=== PATIENT | female | born 1985 | race Caucasian/White ===

== ENCOUNTER 2021-05-23 02:56 | Inpatient (IN) ==
[2021-05-23] MEDS ORDERED: PENICILLIN G POTASSIUM 6 MU in DEXTROSE 5% 250 ML IV STA (03:24)
--- NOTE | 2021-05-23 03:27 | History & Physical Report ---
Date of Service May 23, 2021 Assessment & Plan (1) GBS (group B Streptococcus carrier), +RV culture, currently : (2) Gestational diabetes: (3) Grand multipara: (4) Supervision of elderly multigravida: (5) Normal labor: Plan: Patient is active labor, admit, epidural, pcn for gbs positive. Will attempt to keep patient until second dose but given grandmultiparity may not succeed. Patient has hx of pph with retained placenta two days after her last delivery, will actively manage the third stage. type and screen. Fetus is category one. hx of lga infants, no issues with delivery and last ac was 35 weeks with 55%. anticipate vaginal delivery. Admission and Anticipated Discharge Date Admission Date: May 23, 2021 History of Present Illness Chief Complaint: labor Primary Care Provider: Henrik Valentino MD Patient is a 36yowf who presents to labor and delivery with contractions. She was a scheduled induction for later today for postdates. Denies lof. +fm. and Delivery Plans COVID POSITIVE 04/27/21 (SX STARTED 04/24/21) Induction scheduled for may 23. Had negative test on 05/21/21 Grand Multi Para History of gestational HTN *on baby asa History of retained placenta -required transfusion--1U prbc History of LGA infants *no issues with infant delivery--last baby 10 pounds AMA *Weekly NST's @ 36wks Doxycycline use in 1st trimester *MFM consult (11/21/20 [facility] [place]growth us every 4 weeks Obesity *Per MFM Growth US Q4wks Starting at 24wks last growth at 32 weeks 66%. Asthma GDM w/16wk glucola *Begin monthly AC Us's @24wks--ac 35 weeks 55% GBS carrier- treat in labor OB Labs: Blood Type O Positive 10/09/20 Antibody Screen NEGATIVE 10/09/20 Hemoglobin 13.0 g/dL (12.0-16.0) 02/26/21 Hematocrit 39.0 % (37-47) 02/26/21 Mean Corpuscular Volume 80.8 fL (80-100) 10/09/20 Platelet Count 386 K/uL (130-400) 10/09/20 Rubella IgG Antibody Immune (Immune) 10/09/20 Rapid Plasma Reagin Nonreactive (Nonreactive) 10/09/20 Hepatitis B Surface Antigen Neg (Neg) 10/09/20 HIV (1&2) Ab and P24 Ag, 4th Gener Neg (Neg) 10/09/20 Glucose 1 Hour 50 gm Load 156 mg/dl (70-130) H 12/04/20 OB Optional Labs: Chlamydia trachomatis RNA NOT DETECTED (NOT DETECTED) 10/09/20 Neisseria gonorrhoeae RNA NOT DETECTED (NOT DETECTED) 10/09/20 Labs Reviewed: low risk cfdna declines AFP Allergies Allergy/AdvReac Type Severity Reaction Status Date / Time amoxicillin Allergy diarrhea Verified 05/22/21 10:38 Home Medications Medication Instructions Recorded Confirmed Type ascorbate calcium (vitamin C) PO 10/03/20 05/22/21 History aspirin 81 mg tablet,delayed 81 mg PO DAILY 10/03/20 05/22/21 History release cetirizine 10 mg tablet (Zyrtec) 10 mg PO DAILY PRN 10/03/20 05/22/21 History cholecalciferol (vitamin D3) PO 10/03/20 05/22/21 History [Vitamin D3] prenat.vits,viri,lrq-jvnm-zvdtk 1 tab PO DAILY 10/03/20 05/22/21 History acetone (urine) test (Ketone Urine #50 ea 01/22/21 05/22/21 Rx Test) blood sugar diagnostic (Checkout10Touch #150 ea 01/22/21 05/22/21 Rx Verio test strips) blood-glucose meter (OneTouch #1 ea 01/22/21 05/22/21 Rx Verio Flex meter) lancets 33 gauge (OneTouch Delica #150 ea 01/22/21 05/22/21 Rx Plus Lancet) albuterol sulfate 2.5 mg INHALATION Q6H 03/27/21 05/22/21 History budesonide 90 mcg/actuation breath 1 inh INHALATION BID #1 ea 03/27/21 05/22/21 Rx activated powder inhaler (Pulmicort Flexhaler) montelukast 10 mg tablet 10 mg PO QPM #30 tab 03/27/21 05/22/21 Rx zinc acetate 25 mg (zinc) capsule 25 mg PO DAILY 03/27/21 05/22/21 History (Galzin) Patient History Surgical History H/O breast augmentation Hx of abdominoplasty S/P dilation and curettage x 3 S/P LEEP of cervix S/P tonsillectomy S/P wisdom tooth extraction Family History Father Dyslipidemia Mother Breast cancer Social History Smoking Status: Never smoker marital status: Single marital status details: Domenico (28) [phone] Current Living Situation: Significant Other Current Living Situation Comment: lives with FOB and pts children, 2 dogs, cats (fob to change litter) current occupational status: employed 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 Date GA wks Lbr Lgth wt Sex Type del Anes Place Del Prov ? Comment Unknown 6 Aborted-Elective 2001 D&E Unknown 5 Ectopic 2003 Methotrexate Unknown Aborted-Spontaneous 2003 D&C Unknown 7 Aborted-Elective 2007 D&E Unknown 4 Aborted-Spontaneous 2010 Chemical Preg nacy 04/17/03 39 7lbs 1oz F Epid ural Other Delivered in [place] No 12/29/05 39 9lbs 2oz M Epid ural Other delivered in [place] No 07/27/11 39 8lbs 3oz M Epid ural Other [place] No Face up 05/23/13 39 9lbs 10oz M Non e Other [place] No 10/23/16 39 9lbs F Epidural Other [place] No 02/11/20 40 10lbs M None Ot her Stevan No Elevated BP 06/16/20 5 Aborted-Spontaneous 08/14/20 5 Aborted-Spontaneous [employer] History noncontributory Physical Exam Constitutional: WD/WN, vitals as above Gastrointestinal (Abdomen): soft, gravid, nt Psychiatric: A+Ox3, euthymic affect Genitourinary: cx--75/-2 per nursing toco--q3-5min efm--130s wtih mod variability, accels present, no decels Results & Data ([place]) Vital Signs (Past 12 Hours) Vital Signs Pulse BP 05/23/21 03:16 76 157/85 H Coding Level of Care Code None Diagnoses GBS (group B Streptococcus carrier), +RV culture, currently O99.820 Gestational diabetes O24.419 Grand multipara Z64.1 Supervision of elderly multigravida O09.529 Normal labor O80; Z37.9
[2021-05-23] MEDS: LACTATED RINGER'S 1,000 ML IV PRN ×2 (03:45→04:45)
[2021-05-23] MEDS ORDERED: SODIUM CHLORIDE 0.9% INJ 10 ML VIAL ONE (03:56)
[2021-05-23] MEDS ORDERED: ePHEDrine sulfate 50 MG/ML AMP ONE (03:56)
[2021-05-23] MEDS ORDERED: BUPIVACAINE 0.25% 30 ML VIAL ONE (03:56)
[2021-05-23] MEDS ORDERED: fentaNYL citrate 100 MCG/2 ML VIAL ONE (03:56)
[2021-05-23] MEDS ORDERED: fentaNYL 2MCG/ML ROPIVACAINE 1.25MG/ML 100 ML BAG EPI ONE (03:57)
--- NOTE | 2021-05-23 03:59 | Communication Note ---
Date of Service: May 23, 2021 bedside ultrasound--cephalic ON further review of the chart, her anatomy us at [facility] [place] [place] was incomplete--appears did not get complete spine views and was not able to do skeletal survey completely secondary to doxycycline exposure in early . HOwever, on review it was actually heart views that were never seen. It was recommended she have f/u at [facility] [place] [place] but she never did this, so never documented and no echo. The spine was seen in its entirety per report.
[2021-05-23 04:21] LABS: Hemoglobin 11.4 g/dL (12.0-16.0); Mean Corpuscular Hemoglobin 24.6 pg (25-34); Mean Corpuscular Hgb Conc 31.7 g/dL (32-36); Mean Corpuscular Volume 77.8 fL (80-100); Mean Platelet Volume 9.8 fL (7.4-10.4); Platelet Count 253 K/uL (130-400); RDW Coefficient of Variation 15.9 % (11.5-14.5); RDW Standard Deviation 45.3 fL (36.4-46.3); Red Blood Count 4.63 M/uL (4.2-5.4); White Blood Count 9.94 K/uL (4.8-10.8)
[2021-05-23] MEDS: OXYTOCIN 30 UNITS/500 ML BAG IV PRN ×2 (04:47→05:32)
[2021-05-23] MEDS ORDERED: HYDROCORTISONE ACETATE 25 MG SUPP PR PRN (04:54)
[2021-05-23] MEDS ORDERED: oxyCODONE/ACETAMINOPHEN 5mg/325mg TAB PO PRN (04:54)
[2021-05-23] MEDS ORDERED: ACETAMINOPHEN 325 MG TAB PO PRN (04:54)
[2021-05-23] MEDS ORDERED: OXYTOCIN 30 UNITS/500 ML BAG IV PRN (04:54)
[2021-05-23] MEDS ORDERED: SUPERCREAM 0.870% 15 GM JAR EXT PRN (04:54)
[2021-05-23] MEDS ORDERED: BENZOCAINE 20% AER SPR 82.5 GM CAN EXT PRN (04:54)
[2021-05-23] MEDS ORDERED: DIPHTHERIA/TETANUS/PERTUSSIS 0.5 ML SYR/VIAL IM ONE (04:54)
--- NOTE | 2021-05-23 04:59 | Delivery Summary ---
Vaginal Delivery Summary Date of Service May 23, 2021 Vaginal Delivery Summary Pre-operative Diagnosis: at 40 2/7 active labor ama a1gdm grand multip hx of lga babies hx of pph with retained placenta gbs positive Post-operative Diagnosis: same Procedure: arom manual exploration of the uterus EBL: 300cc Anesthesia: none Procedure: The patient presented to labor and delivery in active labor at 5cm. She progressed quickly to c/c/0 wtih urge to push. arom for clear fluid. The patient pushed for 2 contractions to deliver a viable female infant in nitza position. The rest of the infant was then delivered without difficulty immediately. The baby was vigorous. The was placed in the maternal abdomen for drying and attention. Cord was clamped and cut at one minute of life. Cord blood and segment obtained. Placenta delivered spontaneous, intact with a three vessel cord. One manual sweep of the uterus was performed and no apparant pocs were noted. Cervix/sulci/rectum/perineum were intact. Hemostasis obtained with dilute pitocin and fundal massage. Apgars were 9/9. Mother and baby doing well at the end of the delivery. [facility] Vaginal Delivery Charge Delivery Type Details:
[2021-05-23] MEDS ORDERED: PENICILLIN G POTASSIUM 3 MU in DEXTROSE 5% 100 ML IV PRN (06:24)
[2021-05-23] MEDS: IBUPROFEN 600 MG TAB PO PRN ×2 (07:46→19:16)
[2021-05-23] MEDS: DOCUSATE SODIUM 100 MG CAP PO SCH ×2 (09:02→21:52)
[2021-05-23] MEDS: PRENATAL VITAMIN 1 TAB PO SCH (09:02)
--- NOTE | 2021-05-24 07:15 | Obstetrical Progress Note ---
Date of Service <Stacy Willis DO - Last Filed: 05/24/21 07:15> May 24, 2021 Assessment & Plan <Stacy Willis - Last Filed: 05/24/21 07:15> (1) GBS (group B Streptococcus carrier), +RV culture, currently : 36 yo post op day1 from elderly primagravida, doing well. -Continue routine post care. -vital signs reviewed and WNL (Tmax 36.7) -Blood Type O+, GBS+ 1 dose penicillin, Rubella Immune -Encourage ambulation, monitor and control pain with Motrin, tylenol PRN, resume regular diet, monitor lochia -encourage breast feeding with bottle -hemoglobin 11,4 -patient ok with discharge today (2) Supervision of elderly multigravida: (3) Encounter for care and examination after delivery: Day #:: 1 <Mary Butt MD, FACOG - Last Filed: 05/24/21 08:55> (1) GBS (group B Streptococcus carrier), +RV culture, currently : (2) Supervision of elderly multigravida: (3) Encounter for care and examination after delivery: Subjective <Stacy Willis - Last Filed: 05/24/21 07:15> Ambulation: ambulating normally Voiding: no voiding problems Passing Gas:: Yes Diet Tolerance:: regular diet Lochia:: Small Feeding Type:: breast feeding (with bottle) Current Pain Level(1-10): 0 Review of Systems Negative fever chills Negative headache dizziness Negative chest pain palpitations SOB Negative nausea vomitting diarrhea constipation Negative numbness tingling rash swelling Physical Exam <Stacy Willis - Last Filed: 05/24/21 07:15> General: Alert, oriented. No acute distress. Cardiac: Regular rate and rhythm, no murmurs/rubs/gallops. Respiratory: Clear to auscultation bilaterally a/p, no wheezes/rales/rhonchi. No increased work of breathing. Symmetrical chest rise. No respiratory distress. Abdomen: Soft, nontender, nondistended. Bowel sounds present. Uterus: Uterine fundus firm, palpable at umbilicus. Lower Extremities: No lower extremity edema or swelling. No deep calf pain. Rylie's negative bilaterally.. Results & Data ([facility]) <Stacy Willis DO - Last Filed: 05/24/21 07:15> Vital Signs (Past 12 Hours) Vital Signs Temp Pulse Resp BP 05/24/21 04:30 36.4 C L 73 18 122/79 05/24/21 00:15 36.5 C 73 16 131/83 05/23/21 19:13 36.7 C 83 18 146/92 H <Mary Butt MD, FACOG - Last Filed: 05/24/21 08:55> Co-Signing Physician Notes Resident Physician Supervision Note: I was present with Dr. Willis during the history and exam. I discussed the case with the resident and agree with the findings and plan as documented in the note. Any exceptions or clarifications are listed here: doing well, ready for dc home. has some random elevated bps, no sx. abd soft ff 2down nt, ext nt calves. will dc home. pt lives 45min away, parameters to call reviewed. she does have her own bp cuff, we will call her in one wk for those values and go from there. she denies rojas, visual change, worsening swelling. per peds ok to go home later today if all stable. (gbs pos and only with one dose of pcn) Documented By: Mary Butt MD, FACOG Resident Activity Tracking <Stacy Willis DO - Last Filed: 05/24/21 07:15> Resident Involvement: Resident Care Provided Care Provided: Adult [facility] Medicine
[2021-05-24] MEDS: IBUPROFEN 600 MG TAB PO PRN (07:56)
[2021-05-24] MEDS: DOCUSATE SODIUM 100 MG CAP PO SCH (07:56)
[2021-05-24] MEDS: PRENATAL VITAMIN 1 TAB PO SCH (07:57)
[2021-05-24] MEDS ORDERED: bisacodyL 5 MG TABEC PO SCH (20:00)
[2021-05-25] MEDS ORDERED: bisacodyL 10 MG SUPP PR PRN (04:54)
== END 2021-05-24 15:00 | disposition home or self-care (01) | DRG 807 ==
LOC: 4S1 02:56 → 4S2 07:34

== ENCOUNTER 2022-06-26 03:38 | Inpatient (IN) ==
[2022-06-26] MEDS ORDERED: PENICILLIN G POTASSIUM 6 MU in DEXTROSE 5% 250 ML IV STA (07:51)
[2022-06-26] MEDS ORDERED: OXYTOCIN 30 UNITS/500 ML BAG IV PRN ×3 (07:51→18:03)
[2022-06-26] MEDS ORDERED: LIDOCAINE 1% LOCAL 20 ML VIAL INFIL PRN (07:51)
--- NOTE | 2022-06-26 07:58 | History & Physical Report ---
Date of Service June 26, 2022 Assessment & Plan (1) Elective induction of labor planned: Plan: 37 y/o female at 40+ here for induction of labor. GBS +. RI, Rh pos. FHT: CAT I - baseline 130s, moderate variability, no decels. Anticipate vaginal delivery. Epidural if/when desired. Pitocin as indicated. c/b: 1. GDM 2. GBS+ treat during labor 3. Hx of GHTN 4. Hx of retained placenta requiring transfusion 5. Asthma (2) Gestational diabetes: (3) Carrier of group B Streptococcus: (4) Grand multipara: (5) Asthma: Admission and Anticipated Discharge Date Admission Date: June 26, 2022 History of Present Illness Chief Complaint: IOL Primary Care Provider: Henrik Valentino MD 37 y/o female here for IOL. GBS pos. RI, Rh pos. +FM. No contractions/vaginal bleeding/loss of fluid. c/b 1. GDM 2. GBS pos 3. Hx of GHTN 4. Hx of retained placenta requiring transfusion 5. Asthma Ob Hx: 2 induced 4 spontaneous 1 ectopic 7 living children Case Folder Hx: No STD Hx Last Pap 09/06/20 NIL Allergies Allergy/AdvReac Type Severity Reaction Status Date / Time amoxicillin AdvReac diarrhea Verified 06/26/22 07:55 Home Medications Medication Instructions Recorded Confirmed Type prenat.vits,viri,hqp-ghjx-ecswt 1 tab PO DAILY 05/23/21 06/25/22 History budesonide 90 mcg/actuation breath 1 inh inhalation BID #1 ea 08/09/21 06/25/22 Rx activated powder inhaler cetirizine 5 mg tablet 5 mg PO DAILY #90 tabs 08/09/21 06/25/22 Rx albuterol inhalation PRN 11/16/21 06/25/22 History aspirin PO 11/16/21 06/25/22 History psyllium [Metamucil] PO 11/16/21 06/25/22 History Patient History Medical History (Updated 06/26/22 @ 08:03 by Laura Umana MD) Ectopic History of chicken pox Miscarriage Normal labor Retained placenta Transfusion history Surgical History H/O breast augmentation Hx of abdominoplasty S/P dilation and curettage x 3 S/P LEEP of cervix S/P tonsillectomy S/P wisdom tooth extraction Family History (Updated 11/16/21 @ 10:57 by Cinthia Garcia) Father Dyslipidemia Mother Breast cancer Denies family history of Ovarian cancer Colorectal cancer Social History (Updated 11/16/21 @ 10:58 by Cinthia Garcia) Smoking Status: Never smoker Second Hand Exposure: Yes (At work); Do You Dip or Chew Tobacco: No; Tobacco Cessation Education Requested by Patient: No Hx Alcohol Use: No Hx Substance Use: No Preferred Language: Mauritanian Communication Ability: Effective Career Agent Required: No Beliefs That Will Affect Care: None marital status: Single marital status details: jose Priest(29) [phone] Current Living Situation: Significant Other Current Living Situation Comment: Sinificant other - Domenico and 6 children current occupational status: employed 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 Other Information That Helps Us Care for You: Yes (Hearing loss - bilateral) Feels Safe at Home: Yes Safety Concerns: Feels Safe At This Time Assistive Devices: None Physical Exam Physical Exam: Gen: well appearing gravid female in NAD HEENT: AT NC Resp: No increased work of breathing CV: clinically well perfused : gravid abdomen 2/70/-2 Psych: appropriate mood and affect Neuro: alert and oriented FHT: Cat I - moderate variability, baseline, no decels, +acels Results & Data ([facility]) Vital Signs (Past 12 Hours) Vital Signs Pulse BP 06/26/22 07:52 87 159/79 H Laboratory Results 06/26/22 08:02 Supervising Physician Co-Signing Physician Notes patient seen with resident and agree with findings and plan. Resident Activity Tracking Resident Involvement: Resident Care Provided Care Provided: OB Delivery
[2022-06-26 08:23] LABS: Hematocrit (blood only) 32.6 % (37.0-47.0); Mean Corpuscular Hemoglobin 21.6 pg (25.0-34.0); Mean Corpuscular Hgb Conc 30.7 g/dL (32.0-36.0); Mean Corpuscular Volume 70.6 fL (80.0-100.0); Mean Platelet Volume 10.3 fL (9.4-12.4); Platelet Count 307 K/uL (130-400); RDW Standard Deviation 42.5 fL (36.4-46.3); Red Blood Count 4.62 M/uL (4.20-5.40); White Blood Count 9.14 K/ul (4.8-10.8)
[2022-06-26] MEDS: LACTATED RINGER'S 1,000 ML IV PRN ×3 (08:49→20:24)
[2022-06-26] MEDS ORDERED: SODIUM CHLORIDE 0.9% 250 ML IV PRN (08:54)
[2022-06-26] MEDS ORDERED: ePHEDrine sulfate 50 MG/ML AMP ONE (10:55)
[2022-06-26] MEDS ORDERED: SODIUM CHLORIDE 0.9% INJ 10 ML VIAL ONE (10:56)
[2022-06-26] MEDS ORDERED: LIDOCAINE 2%/EPINEPHRINE 1:200,000 20 ML SDV ONE (10:56)
[2022-06-26] MEDS ORDERED: fentaNYL citrate 100 MCG/2 ML VIAL ONE (10:56)
[2022-06-26] MEDS ORDERED: BUPIVACAINE 0.25% 30 ML VIAL ONE (10:56)
[2022-06-26] MEDS ORDERED: fentaNYL 2MCG/ML ROPIVACAINE 1.25MG/ML 100 ML BAG EPI ONE (10:57)
[2022-06-26] MEDS ORDERED: fentaNYL 2MCG/ML ROPIVACAINE 1.25MG/ML 100 ML BAG EPI PRN (11:17)
[2022-06-26] MEDS ORDERED: ONDANSETRON INJ 2 MG/ML 2 ML VIAL IV PRN (11:17)
[2022-06-26] MEDS ORDERED: NALBUPHINE HCL INJ 10 MG/ML AMP IV PRN (11:17)
[2022-06-26] MEDS ORDERED: diphenhydrAMINE 50 MG/ML VIAL IV PRN (11:17)
[2022-06-26] MEDS ORDERED: NALOXONE HCL 1 MG in SODIUM CHLORIDE 0.9% 1000ML 1,000 ML IV PRN (11:17)
[2022-06-26] MEDS ORDERED: NALOXONE HCL 0.4 MG/1 ML VIAL/CARP IV PRN (11:17)
--- NOTE | 2022-06-26 11:17 | Anesthesiology Consultation ---
Date of Service June 26, 2022 Assessment & Plan ASA ASA2 Proposed Anesthesia Anesthesia Type: Labor Epidural Risk / Benefits Reviewed With: PT / POA / Parent / Guardian, Accepts Plan and Informed Consent Obtained History Height/Weight Height: 5 ft 11 in Weight: 126.552 kg Allergies Allergy/AdvReac Type Severity Reaction Status Date / Time amoxicillin AdvReac diarrhea Verified 06/26/22 07:55 Medications Home Medications Medication Instructions Recorded Confirmed Last Taken prenat.vits,viri,alk-aurp-ytbeg 1 tab PO DAILY 05/23/21 06/25/22 05/22/21 budesonide 90 mcg/actuation breath 1 inh inhalation BID #1 ea 08/09/21 06/25/22 Unknown activated powder inhaler cetirizine 5 mg tablet 5 mg PO DAILY #90 tabs 08/09/21 06/25/22 Unknown albuterol inhalation PRN 11/16/21 06/25/22 Unknown aspirin PO 11/16/21 06/25/22 Unknown psyllium [Metamucil] PO 11/16/21 06/25/22 Unknown Active Medications Generic Name Dose Route Start Last Admin Trade Name Freq PRN Reason Stop Dose Admin Ephedrine Sulfate 10 mg 06/26/22 11:17 06/26/22 11:56 Ephedrine Sulfate 50 Mg/Ml Amp IV 06/27/22 11:16 10 mg Q5M PRN Administration Hypotension Lactated Ringer's 1,000 mls @ 125 mls/hr 06/26/22 07:51 06/26/22 11:19 Lr IV 06/28/22 07:50 125 mls/hr .Q8H PRN Infusion L&D Protocol Protocol Oxytocin 30 units in 500 mls @ 7 mls/hr 06/26/22 07:51 06/26/22 11:10 Pitocin IV 06/28/22 07:50 0.42 units/hr .Q24H PRN 7 mls/hr Labor Induction/Augmentation Titration Protocol 0.42 UNITS/HR Ropivacaine 100 ml 06/26/22 11:17 06/26/22 11:51 Fentanyl 2mcg/Ml Ropivacaine 1.25mg/Ml 100 Ml Bag EPI 06/27/22 11:16 100 ml PRN PRN Administration Pain R/T Labor Protocol Past Medical History Medical History Ectopic History of chicken pox Miscarriage Normal labor Retained placenta Transfusion history Exercise / Class Metabolic Activity II 4-5 Yardwork/Stairs/Walk up hill Past Family History Family History Father Dyslipidemia Mother Breast cancer Denies family history of Ovarian cancer Colorectal cancer Past Surgical History Surgical History H/O breast augmentation Hx of abdominoplasty S/P dilation and curettage x 3 S/P LEEP of cervix S/P tonsillectomy S/P wisdom tooth extraction Past Anesthesia History No Hx of Anesthesia Complications and No Family Hx of Anesthesia Complications History of PONV No Hx of PONV and No Hx of Motion Sickness Social History Smoking Status: Never smoker Do You Dip or Chew Tobacco: No Hx Alcohol Use: No Hx Substance Use: No substance use type: does not use Review of Systems denies fever/cough/ colds/ chest pain/ SOB/ FORREST denies FORREST Physical Exam Vital Signs Last Vital Signs Temp 36.6 C 06/26/22 11:01 Pulse 85 06/26/22 11:55 Resp 20 06/26/22 11:01 BP 97/54 L 06/26/22 11:55 Pulse Ox 97 06/26/22 11:53 ENMT Mouth: no TMJ abnormality and no dentition abnormality Thyromental Distance: > or= 3.5 Finger Breadths Mallampati Class: II Neck neck extension not limited Respiratory normal respiratory effort; no respiratory distress Auscultation: lungs clear to auscultation bilaterally Cardiovascular Rate/Rhythm: regular rate and regular rhythm Neurologic moves all extremities Psychiatric Orientation: alert and oriented x 3 Testing Laboratory Results 06/26/22 08:02 06/26/22 08:07 POC Glucose 117 H
[2022-06-26] MEDS: ePHEDrine sulfate 50 MG/ML AMP IV PRN ×3 (11:50→12:23)
[2022-06-26] MEDS: PENICILLIN G POTASSIUM 3 MU in DEXTROSE 5% 100 ML IV PRN ×2 (12:38→16:51)
--- NOTE | 2022-06-26 14:50 | Labor Progress Brief Note ---
Date of Service June 26, 2022 Subjective Reason For Note: Routine Evaluation Assessment & Plan (1) Elective induction of labor planned: Plan: 37 y/o female at 40+ here for induction of labor. GBS +. RI, Rh pos. Progressing well. Epidural in place. Ruptured for clear. Category 1 tracing c/b: 1. GDM 2. GBS+ treat during labor 3. Hx of GHTN 4. Hx of retained placenta requiring transfusion 5. Asthma (2) Gestational diabetes: (3) Carrier of group B Streptococcus: (4) Grand multipara: (5) Asthma: Admission and Anticipated Discharge Date Admission Date: June 26, 2022 Physical Exam Genitourinary: normal external appearance Manual OB Exam: + cervical dilation 4 cm, + cervical effacement 80%, + station -2 and + amniotic fluid clear OB Exam Monitor Tracing: + external FHT monitor used, + external uterine monitor used, + category I and + normal FHT variability; no early decelerations present, no late decelerations present and no variable decelerations Results & Data ([facility]) Vital Signs (Past 12 Hours) Vital Signs Temp Pulse Resp BP Pulse Ox 06/26/22 08:12 36.5 C 18 06/26/22 14:43 98 H 99 06/26/22 14:38 88 99 06/26/22 14:36 100 H 127/72 06/26/22 14:33 96 H 100 06/26/22 14:28 107 H 100 06/26/22 14:23 86 100 06/26/22 14:20 93 H 130/71 06/26/22 14:18 103 H 100 06/26/22 14:13 91 H 99 06/26/22 14:08 114 H 100 06/26/22 14:06 91 H 131/73 06/26/22 14:01 18 06/26/22 14:01 18 06/26/22 14:03 92 H 98 06/26/22 13:58 105 H 100 06/26/22 13:53 95 H 100 06/26/22 13:48 101 H 100 06/26/22 13:43 89 100 06/26/22 13:38 99 H 100 06/26/22 13:30 16 06/26/22 13:30 16 06/26/22 13:36 96 H 131/70 06/26/22 13:33 98 H 100 06/26/22 12:02 16 06/26/22 12:02 16 06/26/22 12:16 18 06/26/22 12:16 18 06/26/22 13:28 86 100 06/26/22 13:23 98 H 100 06/26/22 13:22 96 H 122/56 L 06/26/22 13:18 104 H 99 06/26/22 13:01 20 06/26/22 13:01 20 06/26/22 13:13 91 H 100 06/26/22 13:08 92 H 97 06/26/22 13:05 88 118/58 L 06/26/22 13:03 83 100 06/26/22 12:58 95 H 98 06/26/22 12:53 90 100 06/26/22 12:49 98 H 120/57 L 06/26/22 12:48 91 H 98 06/26/22 12:45 90 20 124/57 L 06/26/22 12:43 90 100 06/26/22 12:40 88 122/71 06/26/22 12:38 97 H 100 06/26/22 12:33 95 H 16 114/56 L 99 06/26/22 12:31 85 117/55 L 06/26/22 12:29 97 H 105/56 L 06/26/22 12:28 98 H 99 06/26/22 12:27 87 116/56 L 06/26/22 12:25 90 113/60 06/26/22 12:24 81 105/59 L 06/26/22 12:23 84 97 06/26/22 12:22 78 83/41 L 06/26/22 12:19 85 97/50 L 06/26/22 12:18 81 98 06/26/22 12:17 80 94/53 L 06/26/22 12:15 85 104/52 L 06/26/22 12:14 93 H 108/51 L 06/26/22 12:13 89 97 06/26/22 12:12 89 95/47 L 06/26/22 12:09 78 111/55 L 06/26/22 12:08 83 96 06/26/22 12:07 81 104/52 L 06/26/22 12:05 79 104/53 L 06/26/22 12:03 81 122/59 L 98 06/26/22 12:01 92 H 111/59 L 06/26/22 11:59 75 100/55 L 06/26/22 11:58 84 98 06/26/22 11:57 72 109/55 L 06/26/22 11:55 85 97/54 L 06/26/22 11:53 70 06/26/22 11:53 78 91/50 L 97 06/26/22 11:51 71 108/58 L 06/26/22 11:49 63 81/44 L 06/26/22 11:48 82 06/26/22 11:48 87 102/54 L 98 06/26/22 11:47 79 105/54 L 06/26/22 11:45 82 123/60 06/26/22 11:43 100 H 06/26/22 11:43 86 131/71 98 06/26/22 11:41 79 130/80 06/26/22 11:38 57 L 99 06/26/22 11:37 66 99/58 L 06/26/22 11:36 81 115/66 06/26/22 11:33 86 100 06/26/22 11:29 84 146/85 H 06/26/22 11:23 80 155/86 H 06/26/22 11:01 20 06/26/22 11:01 36.6 C 20 06/26/22 10:51 74 147/85 H 06/26/22 10:30 76 142/89 H 06/26/22 09:28 79 141/78 H 06/26/22 09:01 77 150/94 H 06/26/22 07:57 81 140/84 06/26/22 07:52 87 159/79 H Coding Level of Care Code None Diagnoses Elective induction of labor planned Gestational diabetes O24.419 Carrier of group B Streptococcus Z22.330 Grand multipara Z64.1 Asthma J45.909
[2022-06-26] MEDS ORDERED: miSOPROStoL 200 MCG TAB ONE (17:59)
[2022-06-26] MEDS ORDERED: HYDROCORTISONE ACETATE 25 MG SUPP PR PRN (18:03)
[2022-06-26] MEDS ORDERED: bisacodyL 10 MG SUPP PR PRN (18:03)
[2022-06-26] MEDS ORDERED: ACETAMINOPHEN 325 MG TAB PO PRN (18:03)
[2022-06-26] MEDS ORDERED: miSOPROStoL 200 MCG TAB PR ONE (18:03)
[2022-06-26] MEDS ORDERED: DIPHTHERIA/TETANUS/PERTUSSIS 0.5mL SYR/VIAL (Age 7+yrs) IM ONE (18:03)
[2022-06-26] MEDS ORDERED: BENZOCAINE 20% AER SPR 82.5 GM CAN EXT PRN (18:03)
--- NOTE | 2022-06-26 18:12 | Anesthesia Procedure Note ---
Date of Service June 26, 2022 Anesthesia Post Epidural Note Vital Signs Vital Signs: Temp Pulse Resp BP Pulse Ox 36.5 C 98 H 16 135/82 98 06/26/22 17:50 06/26/22 18:06 06/26/22 17:50 06/26/22 18:06 06/26/22 17:38 Pain Intensity Bilateral Abdomen: Pain Intensity: 0 Notes Mental Status: alert / awake / arousable and participated in evaluation Nausea / Vomiting: adequately controlled Pain: adequately controlled Airway Patency, RR, SpO2: stable & adequate BP & HR: stable & adequate Hydration State: stable & adequate Neuraxial Anesthesia: was administered and sensory block resolved Anesthetic Complications: no major complications apparent and Pt Satisfied with anesthetic care Epidural: Removed without complications and With tip intact
[2022-06-26] MEDS: IBUPROFEN 600 MG TAB PO PRN (20:43)
[2022-06-26 20:47] LABS: Hematocrit (blood only) 26.9 % (37.0-47.0); Hemoglobin 8.3 g/dl (12.0-16.0); Mean Corpuscular Hemoglobin 22.1 pg (25.0-34.0); Mean Corpuscular Hgb Conc 30.9 g/dL (32.0-36.0); Mean Corpuscular Volume 71.5 fL (80.0-100.0); Mean Platelet Volume 10.4 fL (9.4-12.4); Platelet Count 269 K/uL (130-400); RDW Coefficient of Variation 16.9 % (11.5-14.5); RDW Standard Deviation 42.9 fL (36.4-46.3); Red Blood Count 3.76 M/uL (4.20-5.40); White Blood Count 11.92 K/ul (4.8-10.8)
--- NOTE | 2022-06-26 20:52 | Obstetrical Progress Note ---
Date of Service June 26, 2022 Assessment & Plan Admission and Anticipated Discharge Date Admission Date: June 26, 2022 Subjective Presented to bedside approximately 2.5-3 hours post delivery for heavy uterine bleeding passage of large clots. Bleeding up to that point was reported as normal. Out of evaluation I was able to express approximately 1000 mL of clot from uterus. Uterus was initially noted to be 3-4 cm above the umbilicus. After removal of the clot uterus was at umbilicus. patient received 800 mcg of Cytotec immediately following delivery as well as 2 bags of Pitocin. discussed the heavy bleeding and recommended placement of a Bakri balloon. Patient was verbally consented for placement of the Bakri balloon. Bakri was filled with 500 mL of saline. Bleeding did improve following Bakri placement. Labs including CBC coags and fibrinogen ordered. Vitals currently stable. Patient alert and oriented but reports that she has some mild lightheadedness. Discussed possibility of a blood transfusion but will wait CBC results. will start Ancef due to Bakri placement Results & Data ([facility]) Vital Signs (Past 12 Hours) Vital Signs Temp Pulse Resp BP Pulse Ox 06/26/22 18:50 18 06/26/22 18:35 36.6 C 18 06/26/22 18:20 16 06/26/22 18:05 18 06/26/22 17:50 36.5 C 16 06/26/22 20:46 90 96 06/26/22 20:43 81 105/53 L 06/26/22 20:41 88 100 06/26/22 20:38 82 127/60 06/26/22 20:36 95 H 100 06/26/22 20:31 99 H 97 06/26/22 20:28 92 H 115/63 06/26/22 20:26 101 H 96 06/26/22 20:23 93 H 128/61 06/26/22 20:18 36.9 C 88 18 124/59 L 06/26/22 20:13 96 H 139/68 06/26/22 20:08 67 106/53 L 06/26/22 20:05 65 104/51 L 06/26/22 20:03 75 119/60 06/26/22 19:51 90 140/61 06/26/22 19:36 98 H 162/72 H 06/26/22 19:21 97 H 18 140/68 06/26/22 19:06 90 136/63 06/26/22 18:51 100 H 152/62 H 06/26/22 18:36 92 H 134/78 06/26/22 18:21 95 H 132/78 06/26/22 18:06 98 H 135/82 06/26/22 17:51 96 H 137/82 06/26/22 17:38 108 H 98 06/26/22 17:33 117 H 81 L 06/26/22 17:28 100 H 99 06/26/22 17:23 98 H 98 06/26/22 17:18 100 H 99 06/26/22 17:13 101 H 98 06/26/22 17:08 95 H 99 06/26/22 17:03 91 H 99 06/26/22 16:58 108 H 98 06/26/22 16:54 18 06/26/22 16:54 36.5 C 18 06/26/22 16:53 94 H 98 06/26/22 16:52 94 H 131/74 06/26/22 16:48 100 H 98 06/26/22 16:43 110 H 92 06/26/22 16:38 88 97 06/26/22 16:33 90 98 06/26/22 16:28 88 98 06/26/22 16:23 85 99 06/26/22 16:18 94 H 98 06/26/22 16:13 92 H 99 06/26/22 16:08 86 100 06/26/22 16:03 93 H 100 06/26/22 16:01 18 06/26/22 16:01 18 06/26/22 15:58 91 H 100 06/26/22 15:53 90 99 06/26/22 15:50 85 132/74 06/26/22 15:48 89 100 06/26/22 15:43 90 100 06/26/22 15:38 109 H 99 06/26/22 15:35 92 H 136/73 06/26/22 15:33 92 H 100 06/26/22 15:31 18 06/26/22 15:31 18 06/26/22 15:28 95 H 100 06/26/22 15:23 101 H 99 06/26/22 15:21 88 139/78 06/26/22 15:18 107 H 99 06/26/22 15:17 97 H 93 06/26/22 15:13 98 H 100 06/26/22 15:08 81 100 06/26/22 15:07 85 126/59 L 06/26/22 15:03 85 100 06/26/22 14:58 88 100 06/26/22 14:53 92 H 99 06/26/22 14:52 18 06/26/22 14:52 36.5 C 93 H 18 130/73 06/26/22 14:48 90 99 06/26/22 14:31 16 06/26/22 14:31 16 06/26/22 14:43 98 H 99 06/26/22 14:38 88 99 06/26/22 14:36 100 H 127/72 06/26/22 14:33 96 H 100 06/26/22 14:28 107 H 100 06/26/22 14:23 86 100 06/26/22 14:20 93 H 130/71 06/26/22 14:18 103 H 100 06/26/22 14:13 91 H 99 06/26/22 14:08 114 H 100 06/26/22 14:06 91 H 131/73 06/26/22 14:01 18 06/26/22 14:01 18 06/26/22 14:03 92 H 98 06/26/22 13:58 105 H 100 06/26/22 13:53 95 H 100 06/26/22 13:48 101 H 100 06/26/22 13:43 89 100 06/26/22 13:38 99 H 100 06/26/22 13:30 16 06/26/22 13:30 16 06/26/22 13:36 96 H 131/70 06/26/22 13:33 98 H 100 06/26/22 12:02 16 06/26/22 12:02 16 06/26/22 12:16 18 06/26/22 12:16 18 06/26/22 13:28 86 100 06/26/22 13:23 98 H 100 06/26/22 13:22 96 H 122/56 L 06/26/22 13:18 104 H 99 06/26/22 13:01 20 06/26/22 13:01 20 06/26/22 13:13 91 H 100 06/26/22 13:08 92 H 97 06/26/22 13:05 88 118/58 L 06/26/22 13:03 83 100 06/26/22 12:58 95 H 98 06/26/22 12:53 90 100 06/26/22 12:49 98 H 120/57 L 06/26/22 12:48 91 H 98 06/26/22 12:45 90 20 124/57 L 06/26/22 12:43 90 100 06/26/22 12:40 88 122/71 06/26/22 12:38 97 H 100 06/26/22 12:33 95 H 16 114/56 L 99 06/26/22 12:31 85 117/55 L 06/26/22 12:29 97 H 105/56 L 06/26/22 12:28 98 H 99 06/26/22 12:27 87 116/56 L 06/26/22 12:25 90 113/60 06/26/22 12:24 81 105/59 L 06/26/22 12:23 84 97 06/26/22 12:22 78 83/41 L 06/26/22 12:19 85 97/50 L 06/26/22 12:18 81 98 06/26/22 12:17 80 94/53 L 06/26/22 12:15 85 104/52 L 06/26/22 12:14 93 H 108/51 L 06/26/22 12:13 89 97 06/26/22 12:12 89 95/47 L 06/26/22 12:09 78 111/55 L 06/26/22 12:08 83 96 06/26/22 12:07 81 104/52 L 06/26/22 12:05 79 104/53 L 06/26/22 12:03 81 122/59 L 98 06/26/22 12:01 92 H 111/59 L 06/26/22 11:59 75 100/55 L 06/26/22 11:58 84 98 06/26/22 11:57 72 109/55 L 06/26/22 11:55 85 97/54 L 06/26/22 11:53 70 06/26/22 11:53 78 91/50 L 97 06/26/22 11:51 71 108/58 L 06/26/22 11:49 63 81/44 L 06/26/22 11:48 82 06/26/22 11:48 87 102/54 L 98 06/26/22 11:47 79 105/54 L 06/26/22 11:45 82 123/60 06/26/22 11:43 100 H 06/26/22 11:43 86 131/71 98 06/26/22 11:41 79 130/80 06/26/22 11:38 57 L 99 06/26/22 11:37 66 99/58 L 06/26/22 11:36 81 115/66 06/26/22 11:33 86 100 06/26/22 11:29 84 146/85 H 06/26/22 11:23 80 155/86 H 06/26/22 11:01 20 06/26/22 11:01 36.6 C 20 06/26/22 10:51 74 147/85 H 06/26/22 10:30 76 142/89 H 06/26/22 09:28 79 141/78 H 06/26/22 09:01 77 150/94 H PG Care Time/CCT Total # of Minutes Spent Total Time Spent with Patient: Total time spent is greater than 50% in coordination of care (as documented) at patient's floor/unit and/or counseling patient: Coding Level of Care Code None Diagnoses
[2022-06-26 21:17] LABS: Fibrinogen 427 mg/dl (184-400); Partial Thromboplastin Ratio 0.9; Partial Thromboplastin Time 23.5 Seconds (21.0-31.0); Prothrombin Time 10.5 Seconds (9.0-12.0)
[2022-06-26] MEDS: OXYTOCIN 20 UNITS in LACTATED RINGER'S 1,000 ML IV SCH (21:41)
[2022-06-26] MEDS: ceFAZolin 2000MG 2,000 MG/15 ML SYR IV SCH (21:42)
[2022-06-26] MEDS: DOCUSATE SODIUM 100 MG CAP PO SCH (21:50)
--- NOTE | 2022-06-27 02:18 | Delivery Summary ---
DATE OF SERVICE: 06/26/2022. PROCEDURE: Normal spontaneous vaginal delivery. SURGEON: uRss Mei MD. PLATING MACHINE OPERATOR: Dr. White with [employer], PGY1. PREOPERATIVE DIAGNOSES: 1. Single intrauterine at 40 weeks' 2 day's gestational age. 2. Grand multiparous. 3. Advanced maternal age. 4. GBS positive. 5. Gestational diabetes. POSTOPERATIVE DIAGNOSES: 1. Single intrauterine at 40 weeks 2 days gestational age. 2. Grand multiparous. 3. Advanced maternal age. 4. GBS positive. 5. Gestational diabetes. 6. Status post procedure. ESTIMATED BLOOD LOSS: 300 mL. DRAINS: None. FLUIDS: Continuous lactated Ringer. URINE OUTPUT: Not measured. COMPLICATIONS: None. FINDINGS: Viable with weight and Apgars pending. Placenta was noted to be intact. DESCRIPTION OF PROCEDURE: The patient progressed to 10 cm dilated, 100% effaced, positive 1 station, pushed over intact perineum with epidural anesthesia and delivered a viable with weight and Apgars as noted above. Head of the delivered in SIERRA position, restituted to left transverse. Double loose nuchal was noted, which was easily reduced. Body and shoulders quickly followed. Tom zach was noted to be vigorous soon after delivery and 1 minute delayed cord clamping was initiated. Cord was then double clamped and cut. remained on maternal abdomen. Cord blood was obtained . Attention was then turned to delivery of the placenta, which was delivered intact, 3-vessel cord, gentle cord traction. On inspection of perineum, vagina, cervix, there was noted to be no laceration s. Sponge, and instrument counts were correct at the completion of the case. Both mother and neonat e stable in the immediate post-delivery period. 800 mcg of Cytotec were placed per rectum at the com pletion of the case. Job ID: [id number]
[2022-06-27] MEDS: IBUPROFEN 600 MG TAB PO PRN ×4 (05:10→21:31)
[2022-06-27] MEDS: ceFAZolin 2000MG 2,000 MG/15 ML SYR IV SCH ×2 (05:10→13:04)
[2022-06-27] MEDS: LACTATED RINGER'S 1,000 ML IV PRN (05:33)
[2022-06-27 06:25] LABS: Hematocrit (blood only) 24.8 % (37.0-47.0); Hemoglobin 7.7 g/dl (12.0-16.0); Mean Corpuscular Hemoglobin 22.1 pg (25.0-34.0); Mean Corpuscular Volume 71.3 fL (80.0-100.0); Platelet Count 260 K/uL (130-400); RDW Coefficient of Variation 17.2 % (11.5-14.5); RDW Standard Deviation 43.5 fL (36.4-46.3); Red Blood Count 3.48 M/uL (4.20-5.40); White Blood Count 11.68 K/ul (4.8-10.8)
[2022-06-27] MEDS: DOCUSATE SODIUM 100 MG CAP PO SCH ×2 (08:39→19:38)
[2022-06-27] MEDS: FERROUS SULFATE 325 MG TAB PO SCH (08:39)
[2022-06-27] MEDS: PRENATAL VITAMIN 1 TAB PO SCH (08:39)
[2022-06-27] MEDS: OXYTOCIN 20 UNITS in LACTATED RINGER'S 1,000 ML IV SCH ×2 (14:21→18:30)
--- NOTE | 2022-06-27 14:45 | Obstetrical Progress Note ---
Date of Service June 27, 2022 Assessment & Plan (1) care following vaginal delivery: (2) hemorrhage: Plan will see how pt bleeding does now that bakri out, c/w dilute pit for now. allow to ambulate and plan move to pp. plan hgb in am. pt aware and agreeable. Admission and Anticipated Discharge Date Admission Date: June 26, 2022 Subjective pt feels well, sitting upright in bed, no dizziness, lightheadedness. aware of this am hgb. have removed almost all of fluid from bakri balloon and noting routine lochia. Review of Systems Constitutional: as per Subjective / HPI Physical Exam Genitourinary: bakri balloon completely deflated and removed. le removed. lochia small. uterus firm 1down per nurse. Results & Data ([facility]) Vital Signs (Past 12 Hours) Vital Signs Temp Pulse Resp BP Pulse Ox 06/27/22 12:33 98.2 F 20 06/27/22 11:00 98.1 F 20 06/27/22 07:15 97.7 F 20 06/27/22 14:36 106 H 96 06/27/22 14:31 83 99 06/27/22 14:26 89 100 06/27/22 14:21 95 H 99 06/27/22 14:16 90 97 06/27/22 14:11 84 98 06/27/22 14:06 92 H 98 06/27/22 14:01 91 H 97 06/27/22 13:56 84 97 06/27/22 13:51 87 97 06/27/22 13:46 87 96 06/27/22 13:41 91 H 98 06/27/22 13:36 94 H 98 06/27/22 13:31 90 98 06/27/22 13:26 95 H 98 06/27/22 13:21 86 97 06/27/22 13:16 87 98 06/27/22 13:11 87 98 06/27/22 13:06 77 98 06/27/22 13:01 80 98 06/27/22 12:56 89 99 06/27/22 12:51 86 98 06/27/22 12:46 82 99 06/27/22 12:41 89 99 06/27/22 12:36 81 98 06/27/22 12:33 86 129/78 06/27/22 12:31 85 97 06/27/22 12:26 83 99 06/27/22 12:21 88 99 06/27/22 12:16 91 H 96 06/27/22 12:11 78 98 06/27/22 12:06 81 98 06/27/22 12:01 83 98 06/27/22 11:56 88 99 06/27/22 11:51 76 98 06/27/22 11:46 72 98 06/27/22 11:41 73 99 06/27/22 11:36 82 98 06/27/22 11:31 82 98 06/27/22 11:26 81 98 06/27/22 11:21 80 98 06/27/22 11:16 82 98 06/27/22 11:11 86 97 06/27/22 11:06 82 98 06/27/22 11:01 85 98 06/27/22 10:56 85 97 06/27/22 10:51 90 99 06/27/22 10:47 77 141/88 H 06/27/22 10:46 79 98 06/27/22 10:41 73 99 06/27/22 10:36 82 97 06/27/22 10:31 81 98 06/27/22 10:26 93 H 98 06/27/22 10:21 91 H 98 06/27/22 10:16 89 98 06/27/22 10:11 81 97 06/27/22 10:06 84 97 06/27/22 10:01 86 96 06/27/22 09:56 83 97 06/27/22 09:51 75 95 06/27/22 09:46 78 98 06/27/22 09:41 85 96 06/27/22 09:36 82 97 06/27/22 09:31 92 H 99 06/27/22 09:26 91 H 99 06/27/22 09:21 90 99 06/27/22 09:16 87 97 06/27/22 09:15 92 H 130/67 06/27/22 09:11 95 H 99 06/27/22 09:06 91 H 98 06/27/22 09:01 93 H 97 06/27/22 08:56 96 H 98 06/27/22 08:51 89 97 06/27/22 08:46 90 97 06/27/22 08:41 99 H 98 06/27/22 08:36 94 H 98 06/27/22 08:31 95 H 98 06/27/22 08:26 93 H 98 06/27/22 08:21 89 98 06/27/22 08:16 91 H 97 06/27/22 08:15 83 133/75 06/27/22 08:11 92 H 97 06/27/22 08:06 87 98 06/27/22 08:01 86 99 06/27/22 07:56 78 98 06/27/22 07:51 86 99 06/27/22 07:46 88 98 06/27/22 07:41 83 98 06/27/22 07:36 82 99 06/27/22 07:31 82 100 06/27/22 07:26 80 99 06/27/22 07:21 84 99 06/27/22 07:16 84 99 06/27/22 07:15 79 136/78 06/27/22 07:11 78 99 06/27/22 07:06 85 98 06/27/22 07:01 85 99 06/27/22 06:56 67 97 06/27/22 06:51 69 97 06/27/22 06:46 68 97 06/27/22 06:41 68 97 06/27/22 06:36 67 97 06/27/22 06:31 68 97 06/27/22 06:26 68 97 06/27/22 06:21 74 100 06/27/22 06:16 90 100 06/27/22 06:15 81 138/63 06/27/22 06:11 65 98 06/27/22 06:06 66 97 06/27/22 06:01 71 98 06/27/22 05:56 82 100 06/27/22 05:51 71 98 06/27/22 05:46 67 98 06/27/22 05:41 65 98 06/27/22 05:36 70 97 06/27/22 05:31 64 99 06/27/22 05:26 82 100 06/27/22 05:21 69 98 06/27/22 05:16 73 99 06/27/22 05:15 74 133/70 06/27/22 05:11 76 99 06/27/22 05:06 71 97 06/27/22 05:01 69 97 06/27/22 04:56 67 97 06/27/22 04:51 69 97 06/27/22 04:46 68 97 06/27/22 04:41 71 97 06/27/22 04:36 70 97 06/27/22 04:31 67 97 06/27/22 04:26 68 97 06/27/22 04:21 70 97 06/27/22 04:16 70 97 06/27/22 04:15 78 139/73 06/27/22 04:11 73 96 06/27/22 04:06 65 96 06/27/22 04:01 66 97 06/27/22 03:56 67 96 06/27/22 03:51 69 97 06/27/22 03:46 69 96 06/27/22 03:41 77 97 06/27/22 03:36 85 98 06/27/22 03:31 69 98 06/27/22 03:26 77 98 06/27/22 03:21 74 97 06/27/22 03:16 75 97 06/27/22 03:15 98.2 F 78 18 123/69 06/27/22 03:11 88 98 06/27/22 03:06 82 98 06/27/22 03:01 78 97 06/27/22 02:56 83 97 06/27/22 02:51 81 97 06/27/22 02:46 88 97 PG Care Time/CCT Total # of Minutes Spent Total Time Spent with Patient: Total time spent is greater than 50% in coordination of care (as documented) at patient's floor/unit and/or counseling patient: Coding Level of Care Code None Diagnoses care following vaginal delivery Z39.2 hemorrhage O72.1
[2022-06-27] MEDS ORDERED: bisacodyL 5 MG TABEC PO SCH (20:00)
--- NOTE | 2022-06-28 06:28 | Obstetrical Progress Note ---
Date of Service June 28, 2022 Assessment & Plan (1) care following vaginal delivery: (2) hemorrhage: Plan stable, doing well. vss. no excess bleeding. hgb pending this am but plan dc home. instructions reviewed. she would like return to work at 2wks, has ethane ntly done this with every prior but now work requires note. rec 2wk pp check in appt to d/w provider. she agrees. enc to call for that appt soon. Day #:: 2 Subjective Ambulation: ambulating normally Voiding: no voiding problems Diet Tolerance:: regular diet Lochia:: Small Feeding Type:: bottle feeding no pain or bleeding issues. wants to go home. Constitutional: + as per Subjective / HPI Physical Exam Constitutional WD/WN, vitals as above Respiratory normal respiratory effort, lungs clear to auscultation Cardiovascular Rate/Rhythm: regular rate and regular rhythm Gastrointestinal (Abdomen) Inspection/Auscultation: abdomen normal to inspection Percussion/Palpation: abdomen soft; abdomen nontender Fundus firm 2cm down Musculoskeletal nt calves no edema Neurologic grossly normal Psychiatric A+Ox3, euthymic affect Results & Data ([facility]) Vital Signs (Past 12 Hours) Vital Signs Temp Pulse Resp BP Pulse Ox O2 Del Method 06/28/22 04:00 97.7 F 80 18 134/86 06/27/22 23:10 97.9 F 75 18 138/86 97 Room Air 06/27/22 19:44 98.4 F 87 18 158/82 H 99 Room Air
[2022-06-28 06:30] LABS: Hematocrit (blood only) 23.3 % (37.0-47.0); Hemoglobin 7.1 g/dl (12.0-16.0)
[2022-06-28] MEDS: IBUPROFEN 600 MG TAB PO PRN (06:35)
[2022-06-28] MEDS: FERROUS SULFATE 325 MG TAB PO SCH (08:46)
[2022-06-28] MEDS: DOCUSATE SODIUM 100 MG CAP PO SCH (08:46)
[2022-06-28] MEDS: PRENATAL VITAMIN 1 TAB PO SCH (08:46)
== END 2022-06-28 12:45 | disposition home or self-care (01) | DRG 806 ==
LOC: 4S1 07:49 → 4E2 06-27 15:55

== ENCOUNTER 2023-10-27 16:09 | Inpatient (IN) ==
[2023-10-27] MEDS ORDERED: ONDANSETRON INJ 2 MG/ML 2 ML VIAL IV PRN (17:33)
[2023-10-27] MEDS ORDERED: LIDOCAINE 1% LOCAL 20 ML VIAL INFIL PRN (17:33)
--- NOTE | 2023-10-27 17:46 | Labor Progress Brief Note ---
Date of Service October 27, 2023 Subjective 38yo G18,[id number] with gestational hypertension admitted for induction of labor. Medically indicated due to the above dx. Also being managed as A2GDM due to GDM and noncompliance with testing or treatment. She has a prior history of gHTN, and a prior history x3 of PPH, two of which required transfusion, one of which was due to retained placenta, and one of which was delayed nearly 24 hours from the time of delivery. Current Hgb is significantly anemic. Patient aware of high risk for hemorrhage, and plan to type and cross in advance and be aggressive / early about managing this risk as best we can. GBS positive and will treat with PCN; has a listed allergy to amox but this is diarrhea therefore actually a side effect, and pt notes she has had PCN without difficulty before. Assessment & Plan (1) Gestational hypertension: Plan Induction due to gHTN. Other comorbidities as above. Ultrasound used to confirm vertex. Plan for managing possible PPH discussed given patient's many risk factors. Perez balloon placed through cervix after patient verbally consented for same. Will begin pitocin when balloon falls out, or could start low-dose if balloon not removable by AM; patient to remain in-house due to HTN. Physical Exam Constitutional: WD/WN, vitals as above Eyes: PERRL, conjunctivae normal, anicteric sclerae ENMT: external ear and nose normal, oropharynx normal Neck: supple Respiratory: normal respiratory effort and able to speak in complete sentences; no respiratory distress Cardiovascular: Rate/Rhythm: regular rate and regular rhythm Gastrointestinal (Abdomen): Gravid / AGA, nontender Musculoskeletal: no cyanosis or clubbing, extremities motor strength 5/5 Skin: no rashes, warm and dry Psychiatric: A+Ox3, euthymic affect Genitourinary: Speculum/Bimanual Exam: no vaginal lesions, no vaginal bleeding and uterus nontender OB Exam Abdomen: + vertex (by US at bedside) and + estimated weight (8-9) Manual OB Exam: + cervical dilation fingertip, + cervical effacement 10%, + station high and + amniotic fluid (No leaking evident) OB Exam Monitor Tracing: + external FHT monitor used, + external uterine monitor used and + category I Lymphatic: no cervical or axillary lymphadenopathy Results & Data Vital Signs (Past 12 Hours) Vital Signs Temp Pulse Resp BP 10/27/23 16:35 98.2 F 20 10/27/23 16:27 101 H 137/72 10/27/23 16:16 108 H 173/92 H Coding Level of Care Code None Diagnoses Gestational hypertension O13.9 CPT Codes Misx Procedure Codes - 54791 Placement of cervical dilator: 81236 Placement of cervical dilator ([id number]) APPLICATION [employer] Miscellaneous Codes Misx Procedure Codes 80991 Placement of cervical dilator
[2023-10-27] MEDS ORDERED: SODIUM CHLORIDE 0.9% 250 ML IV PRN (17:47)
[2023-10-27] MEDS: PENICILLIN GK 6 MU in DEXTROSE 5% 250 ML IV STA (18:03)
[2023-10-27] MEDS: LACTATED RINGER'S 1,000 ML IV PRN (18:03)
[2023-10-27 18:10] LABS: Hematocrit (blood only) 33.6 % (37.0-47.0); Hemoglobin 9.8 g/dl (12.0-16.0); Mean Corpuscular Hemoglobin 19.8 pg (25.0-34.0); Mean Corpuscular Hgb Conc 29.2 g/dL (32.0-36.0); Mean Corpuscular Volume 67.7 fL (80.0-100.0); Mean Platelet Volume 9.7 fL (9.4-12.4); Platelet Count 349 K/uL (130-400); RDW Coefficient of Variation 17.2 % (11.5-14.5); Red Blood Count 4.96 M/uL (4.20-5.40); White Blood Count 11.32 K/ul (4.8-10.8)
[2023-10-27] MEDS: OXYTOCIN 30 UNITS/NSS 30 UNITS/500 ML BAG IV PRN (20:11)
[2023-10-27] MEDS: PENICILLIN GK 3 MU in DEXTROSE 5% 100 ML IV PRN (22:02)
[2023-10-27 22:09] LABS: Albumin Level 3.4 gm/dl (3.4-5.0); BUN Creatinine Ratio 13.8 (10-20); Bilirubin,Total 0.3 mg/dl (0.2-1.0); Calcium 8.4 mg/dl (8.6-10.3); Creatinine Clr Calc Pharmacy 187.2 ml/min; Est GFR (African American) 134.6 ml/min; Est GFR (Non-African American) 116.1 ml/min; Globulin 3.4 gm/dl (2.5-4.0); Potassium 3.4 mmol/L (3.5-5.1); Total Protein 6.8 gm/dl (6.0-8.3)
[2023-10-28] MEDS ORDERED: ROPIVACAINE 0.5% PF 5 MG/ML 20 ML VIAL EPI PRN ×2 (06:03→08:22)
[2023-10-28] MEDS ORDERED: fentaNYL citrate PF 100 MCG/2 ML VIAL EPI PRN ×2 (06:03→08:22)
[2023-10-28] MEDS ORDERED: NALOXONE HCL 1 MG in SODIUM CHLORIDE 0.9% 1,000 ML IV PRN ×2 (06:03→08:22)
[2023-10-28] MEDS ORDERED: NALOXONE HCL 0.4 MG/1 ML VIAL/CARP IV PRN ×2 (06:03→08:22)
[2023-10-28] MEDS ORDERED: diphenhydrAMINE 50 MG/ML VIAL IV PRN ×2 (06:03→08:22)
[2023-10-28] MEDS ORDERED: BUPIVACAINE 0.25% PF 30 ML VIAL EPI PRN ×2 (06:03→08:22)
[2023-10-28] MEDS ORDERED: SODIUM CHLORIDE 0.9% PF INJ 10 ML VIAL EPI PRN ×2 (06:03→08:22)
[2023-10-28] MEDS ORDERED: LIDOCAINE 2% MPF LOCAL 5 ML VIAL EPI PRN ×2 (06:03→08:22)
[2023-10-28] MEDS ORDERED: NALBUPHINE HCL 5 MG in SYRINGE 0 ML IV PRN ×2 (06:03→08:22)
[2023-10-28] MEDS ORDERED: ePHEDrine sulfate 50 MG/ML AMP IV PRN ×2 (06:03→08:22)
--- NOTE | 2023-10-28 06:03 | Anesthesiology Consultation ---
Date of Service October 28, 2023 Assessment & Plan ASA ASA2 Proposed Anesthesia Anesthesia Type: Labor Epidural Risk / Benefits Reviewed With: PT / POA / Parent / Guardian, Accepts Plan and Informed Consent Obtained History Height/Weight Height: 5 ft 11.5 in Weight: 119.748 kg Allergies Allergy/AdvReac Type Severity Reaction Status Date / Time amoxicillin AdvReac diarrhea Verified 10/27/23 17:00 Medications Home Medications Medication Instructions Recorded Confirmed Last Taken cetirizine 5 mg tablet 5 mg PO DAILY #90 tabs 08/09/21 10/27/23 10/26/23 20:00 montelukast 10 mg tablet 10 mg PO DAILY 08/19/22 10/27/23 Unknown (Singulair) albuterol sulfate inhalation 03/31/23 10/27/23 Unknown ascorbic acid (vitamin C) PO 03/31/23 10/27/23 Unknown cholecalciferol (vitamin D3) PO 03/31/23 10/27/23 Unknown vitamin B complex PO 03/31/23 10/27/23 Unknown aspirin 81 mg capsule 81 mg PO DAILY 10/24/23 10/27/23 10/27/23 iron, carbonyl [Iron Chews] PO 10/24/23 10/27/23 Unknown vits no.124-ferrous fum 1 tab PO DAILY 10/27/23 10/27/23 10/26/23 20:00 27 mg iron-folic acid 800 mcg tablet ( Vitamin) Active Medications Generic Name Dose Route Start Last Admin Trade Name Freq PRN Reason Stop Dose Admin Oxytocin 30 units in 500 mls @ 18 mls/hr 10/27/23 17:33 10/28/23 05:00 Pitocin 30 Units/Nss IV 10/29/23 17:32 1.08 units/hr .Q24H PRN 18 mls/hr Labor Induction/Augmentation Titration Protocol 1.08 UNITS/HR Lactated Ringer's 1,000 mls @ 125 mls/hr 10/27/23 17:33 10/28/23 05:25 Lr IV 10/29/23 17:32 999 mls/hr .Q8H PRN Administration L&D Protocol Protocol Penicillin G Potassium 3 mu/ 106 mls @ 100 mls/hr 10/27/23 20:34 10/28/23 04:06 Dextrose IV 11/06/23 20:33 Infused Q4H PRN Infusion GBS(+) Until Delivery Past Medical History Medical History Migraine Ectopic Miscarriage Retained placenta Transfusion history History of chicken pox Exercise / Class Metabolic Activity II 4-5 Yardwork/Stairs/Walk up hill Past Family History Family History Father Dyslipidemia Mother Breast cancer Denies family history of Ovarian cancer Colorectal cancer Past Surgical History Surgical History Hx of abdominoplasty H/O breast augmentation S/P dilation and curettage x 3 S/P wisdom tooth extraction S/P tonsillectomy S/P LEEP of cervix Past Anesthesia History No Hx of Anesthesia Complications and No Family Hx of Anesthesia Complications History of PONV No Hx of PONV and No Hx of Motion Sickness Social History Smoking Status: Never smoker Do You Dip or Chew Tobacco: No Hx Alcohol Use: No Hx Substance Use: No substance use type: does not use Review of Systems denies fever/cough/ colds/ chest pain/ SOB/ FORREST denies FORREST Physical Exam Vital Signs Last Vital Signs Temp 36.7 C 10/28/23 04:05 Pulse 75 10/28/23 05:58 Resp 18 10/28/23 04:05 BP 159/91 H 10/28/23 05:23 Pulse Ox 100 10/28/23 05:58 ENMT Mouth: no TMJ abnormality and no dentition abnormality Thyromental Distance: > or= 3.5 Finger Breadths Mallampati Class: II Neck neck extension not limited Respiratory normal respiratory effort; no respiratory distress Auscultation: lungs clear to auscultation bilaterally Cardiovascular Rate/Rhythm: regular rate and regular rhythm Neurologic moves all extremities Psychiatric Orientation: alert and oriented x 3 Testing Laboratory Results 10/27/23 17:49 10/27/23 20:58 Blood Type O Positive 10/27/23 17:49 Antibody Screen NEGATIVE 10/27/23 17:49
[2023-10-28] MEDS: fentANYL 2 MCG/ML BUPIVacaine 0.125%-NSS 100ML BAG EPI PRN ×2 (06:27→08:27)
[2023-10-28] MEDS: fentaNYL citrate PF 100 MCG/2 ML VIAL EPI STA ×2 (06:27→13:50)
[2023-10-28] MEDS: LIDOCAINE 2%/EPINEPHRINE 1:200,000 20 ML PF EPI STA ×2 (06:27→08:38)
[2023-10-28] MEDS: BUPIVACAINE 0.25% PF 30 ML VIAL EPI STA ×2 (06:27→08:38)
[2023-10-28] MEDS: LIDOCAINE 2%/EPINEPHRINE 1:200,000 20 ML PF ONE (06:44)
[2023-10-28] MEDS: fentaNYL citrate PF 100 MCG/2 ML VIAL ONE (06:44)
[2023-10-28] MEDS: fentANYL 2 MCG/ML BUPIVacaine 0.125%-NSS 100ML BAG ONE (06:44)
[2023-10-28] MEDS: BUPIVACAINE 0.25% PF 30 ML VIAL ONE (06:44)
[2023-10-28] MEDS: ePHEDrine sulfate 50 MG/ML AMP ONE (06:44)
[2023-10-28] MEDS: SODIUM CHLORIDE 0.9% PF INJ 10 ML VIAL ONE (06:45)
--- NOTE | 2023-10-28 07:26 | Labor Progress Brief Note ---
Date of Service October 28, 2023 Subjective Received epidural. Patient does not feel it has worked or changed her pain meaningfully at all; "maybe a little less" but she's not even sure it is reduced; still rates 5/10. That said she is able to speak through contractions and is not in evident distress. She has undergone unmedicated previously, multiple times, and states she could do so if needed again, but would prefer to have better pain relief since we have time for that. Had her press PCEA button for the first time during my visit, and dose was administered. Assessment & Plan (1) Gestational hypertension: Plan: Given grand multiparity, it's expected that AROM will make the remainder of her labor proceed rapidly and with some increased intensity. She does not desire this until better pain control is achieved, if possible. AROM right now also somewhat risky as head not circumferentially applied. Offered waiting another 30-60min to see if the PCEA dosing and some more time for her (still quite new) epidural to fully take effect, and then either decide to have anesthesia re-evaluate her or proceed with AROM depending on how she's feeling at that time. She accepts this plan gratefully. Admission and Anticipated Discharge Date Admission Date: October 27, 2023 Physical Exam Genitourinary: 575/-2 and the head is situated v phong anterior while the cervix is still posterior, leaving an area at the back where head is not very well applied to cervix at all. FHT Cat 1 [place] Q2-3 Pit @ 18. Results & Data Vital Signs (Past 12 Hours) Vital Signs Temp Pulse Resp BP Pulse Ox 10/28/23 07:20 80 157/87 H 10/28/23 07:18 78 98 10/28/23 07:13 82 99 10/28/23 07:08 88 99 10/28/23 07:05 80 148/80 H 10/28/23 07:03 81 99 10/28/23 06:58 75 99 10/28/23 06:53 76 99 10/28/23 06:48 80 145/81 H 99 10/28/23 06:46 77 152/81 H 10/28/23 06:44 77 144/82 H 10/28/23 06:43 78 99 10/28/23 06:42 72 140/76 10/28/23 06:40 80 140/80 10/28/23 06:38 99 10/28/23 06:38 76 10/28/23 06:38 77 140/81 10/28/23 06:36 83 145/83 H 10/28/23 06:34 78 147/80 H 10/28/23 06:33 83 99 10/28/23 06:32 80 151/88 H 10/28/23 06:30 78 147/84 H 10/28/23 06:28 83 139/75 99 10/28/23 06:26 85 147/85 H 10/28/23 06:24 83 158/91 H 10/28/23 06:23 93 H 100 10/28/23 06:21 77 151/89 H 10/28/23 06:18 83 99 10/28/23 06:13 83 100 10/28/23 06:08 86 99 10/28/23 06:03 80 100 10/28/23 05:58 75 100 10/28/23 05:53 68 99 10/28/23 05:48 76 100 10/28/23 05:43 73 100 10/28/23 05:23 74 159/91 H 10/28/23 04:22 68 137/82 10/28/23 04:05 98.1 F 10/28/23 03:22 64 136/71 10/28/23 02:21 62 147/80 H 10/28/23 01:26 72 132/78 10/27/23 23:22 98.1 F 10/27/23 23:22 77 10/27/23 23:22 146/90 H 10/27/23 22:46 18 10/27/23 22:46 98.1 F 10/27/23 22:46 80 10/27/23 22:46 147/85 H 10/27/23 21:21 88 10/27/23 21:21 137/80 10/27/23 20:21 88 10/27/23 20:21 155/85 H Coding Level of Care Code None Diagnoses Gestational hypertension O13.9
[2023-10-28] MEDS: SODIUM CHLORIDE 0.9% PF INJ 10 ML VIAL EPI STA ×2 (07:58→13:50)
[2023-10-28] MEDS ORDERED: ONDANSETRON INJ 2 MG/ML 2 ML VIAL IV PRN (08:22)
[2023-10-28] MEDS: ONDANSETRON INJ 2 MG/ML 2 ML VIAL IV PRN (09:00)
[2023-10-28] MEDS: miSOPROStoL 200 MCG TAB ONE (12:00)
--- NOTE | 2023-10-28 12:06 | Delivery Summary ---
Vaginal Delivery Summary Date of Service October 28, 2023 Vaginal Delivery Summary [facility] Vaginal Delivery Summary: Pre-delivery diagnoses: 38yo @ 37 4/7, IOL for gestational hypertension, gestational diabetes (not following protocols), history of hemorrhage, GBS+, grand multip Post-delivery diagnoses: same Procedure: spontaneous vaginal delivery Surgeon: Laurie Clancy DO Complications: none Findings: Viable female . Apgars: 8/9. Weight pending, please see nursery records. Estimated QBL: 221cc Description of delivery: The patient progressed to complete with epidural anesthesia. She had a small gush of dark red blood with clots, and therefore exam was performed to find that she was completely dilated - SROM for clear amniotic fluid during exam. She then began to push. She spontaneously vaginally delivered a viable from the cephalic presentation. The head delivered in SIERRA position. The anterior shoulder delivered, followed by the posterior shoulder, followed by the body. The baby was placed on mother's abdomen and a spontaneous cry was heard. Delayed cord clamping was employed, and the cord was doubly clamped and cut. A segment was retained for cord gases. Cord blood was obtained. The placenta was delivered spontaneously intact with a 3-vessel cord - large clot noted on placenta, ?abruption?. The uterus and vagina were swept of clots and debris. IV pitocin was given. The uterus became firm. Bladder was drained. The cervix, vagina, and perineum were inspected and no lacerations were noted. Excellent hemostasis was observed. D/t patient's history of hemorrhage, although the patient was hemostatic, she was given 1000mcg cytotec preventively. The mother and baby are recovering in stable and good condition in the room. Sponge and instrument counts were correct x 2. Laurie Clancy DO [facility] Vaginal Delivery Charge Vaginal Delivery Codes: 29437 global code for the antepartum, delivery, and post- Delivery Type Details: [facility]
[2023-10-28] MEDS: OXYTOCIN 30 UNITS/NSS 30 UNITS/500 ML BAG IV PRN (12:10)
--- NOTE | 2023-10-28 12:58 | Anesthesia Procedure Note ---
Date of Service October 28, 2023 Anesthesia Post Epidural Note Vital Signs Vital Signs: Temp Pulse Resp BP Pulse Ox O2 Del Method 98.6 F 75 16 137/83 98 Room Air 10/28/23 12:00 10/28/23 12:45 10/28/23 12:00 10/28/23 12:45 10/28/23 12:00 10/28/23 12:00 Pain Intensity Bilateral Head: Pain Intensity: 3 Notes Mental Status: alert / awake / arousable and participated in evaluation Nausea / Vomiting: adequately controlled Pain: adequately controlled Airway Patency, RR, SpO2: stable & adequate BP & HR: stable & adequate Hydration State: stable & adequate Neuraxial Anesthesia: was administered and sensory block is resolving Anesthetic Complications: no major complications apparent and Pt Satisfied with anesthetic care Epidural: Removed without complications and With tip intact
[2023-10-28] MEDS ORDERED: bisacodyL 10 MG SUPP PR PRN (12:59)
[2023-10-28] MEDS: ACETAMINOPHEN 325 MG TAB ONE (12:59)
[2023-10-28] MEDS ORDERED: ACETAMINOPHEN 325 MG TAB PO PRN (12:59)
[2023-10-28] MEDS ORDERED: BENZOCAINE 20% SPRY 85 APPLN/85 GM CAN EXT PRN (12:59)
[2023-10-28] MEDS ORDERED: OXYTOCIN 30 UNITS/NSS 30 UNITS/500 ML BAG IV PRN (12:59)
[2023-10-28] MEDS ORDERED: oxyCODONE/ACETAMINOPHEN 5mg/325mg TAB PO PRN (12:59)
[2023-10-28] MEDS ORDERED: HYDROCORTISONE ACETATE 25 MG SUPP PR PRN (12:59)
[2023-10-28] MEDS: miSOPROStoL 200 MCG TAB PR ONE (13:19)
[2023-10-28] MEDS: DIPHTHER/TETAN/PERTUS Vaccine (Tdap, Adol/Adult) 0.5mL IM ONE (13:21)
[2023-10-28] MEDS: IBUPROFEN 600 MG TAB PO PRN (15:53)
--- NOTE | 2023-10-28 18:10 | Obstetrical Progress Note ---
Date of Service October 28, 2023 Assessment & Plan Admission and Anticipated Discharge Date Admission Date: October 27, 2023 Review of Systems Review of Systems: Pt passed 229cc clot, no further bleeding after. Vitals stable, feeling ok. No more bleeding. Will keep monitoring. Results & Data Vital Signs (Past 12 Hours) Vital Signs Temp Pulse Pulse Resp BP BP Pulse Ox 10/28/23 17:07 71 H 157/96 H 10/28/23 16:00 36.4 C L 80 16 166/85 H 10/28/23 14:00 79 134/72 10/28/23 13:45 83 145/77 H 10/28/23 13:31 77 142/79 H 10/28/23 13:15 73 149/83 H 10/28/23 13:00 75 147/96 H 10/28/23 12:45 75 137/83 10/28/23 12:30 77 135/74 10/28/23 12:15 78 144/78 H 10/28/23 12:00 37 C 16 98 10/28/23 12:00 82 136/77 10/28/23 11:53 98 H 100 10/28/23 11:48 88 98 10/28/23 11:46 80 162/87 H 10/28/23 11:43 84 100 10/28/23 11:38 78 99 10/28/23 11:33 77 98 10/28/23 11:32 67 119/63 10/28/23 11:28 70 99 10/28/23 11:23 71 98 10/28/23 11:18 70 98 10/28/23 11:16 69 129/63 10/28/23 11:13 67 98 10/28/23 11:08 67 99 10/28/23 11:03 65 98 10/28/23 11:00 70 123/61 10/28/23 10:58 70 98 10/28/23 10:53 70 98 10/28/23 10:48 75 98 10/28/23 10:46 66 120/61 10/28/23 10:43 69 98 10/28/23 10:38 75 98 10/28/23 10:33 74 98 10/28/23 10:30 73 134/68 10/28/23 10:28 75 99 10/28/23 10:23 66 99 10/28/23 10:18 74 98 10/28/23 10:15 68 131/64 10/28/23 10:13 72 98 10/28/23 10:08 71 99 10/28/23 10:03 76 98 10/28/23 10:01 73 131/67 10/28/23 09:58 73 99 10/28/23 09:53 70 97 10/28/23 09:48 75 98 10/28/23 09:45 72 130/62 10/28/23 09:43 72 98 10/28/23 09:38 75 98 10/28/23 09:33 84 100 10/28/23 09:31 74 128/65 10/28/23 09:28 80 98 10/28/23 09:23 78 98 10/28/23 09:18 75 97 10/28/23 09:15 80 139/68 10/28/23 09:13 91 H 98 10/28/23 09:08 81 99 10/28/23 09:03 83 99 10/28/23 09:00 88 138/79 10/28/23 08:58 85 100 10/28/23 08:56 78 136/75 10/28/23 08:53 76 99 10/28/23 08:52 81 136/82 10/28/23 08:48 98 10/28/23 08:48 81 10/28/23 08:48 80 142/80 H 10/28/23 08:43 98 10/28/23 08:43 76 10/28/23 08:43 77 138/81 10/28/23 08:38 80 98 10/28/23 08:35 83 143/72 H 10/28/23 08:33 36.5 C 79 138/72 98 10/28/23 08:31 86 141/71 H 10/28/23 08:30 16 10/28/23 08:30 16 10/28/23 08:29 78 146/77 H 10/28/23 08:28 99 10/28/23 08:28 86 10/28/23 08:28 80 153/73 H 10/28/23 08:25 74 133/77 10/28/23 08:23 82 140/76 98 10/28/23 08:21 85 137/79 10/28/23 08:19 82 139/78 10/28/23 08:18 83 98 10/28/23 08:17 86 141/84 H 10/28/23 08:15 83 139/77 10/28/23 08:13 86 145/81 H 98 10/28/23 08:11 90 140/82 10/28/23 08:09 86 139/83 10/28/23 08:08 82 98 10/28/23 08:03 86 99 10/28/23 07:58 88 98 10/28/23 07:53 85 97 10/28/23 07:49 80 147/83 H 10/28/23 07:48 82 98 10/28/23 07:43 85 99 10/28/23 07:38 84 99 10/28/23 07:34 81 150/78 H 10/28/23 07:33 80 98 10/28/23 07:28 82 99 10/28/23 07:23 80 98 10/28/23 07:20 80 157/87 H 10/28/23 07:18 78 98 10/28/23 07:13 82 99 10/28/23 07:08 88 99 10/28/23 07:05 80 148/80 H 10/28/23 07:03 81 99 10/28/23 06:58 75 99 10/28/23 06:53 76 99 10/28/23 06:48 80 145/81 H 99 10/28/23 06:46 77 152/81 H 10/28/23 06:44 77 144/82 H 10/28/23 06:43 78 99 10/28/23 06:42 72 140/76 10/28/23 06:40 80 140/80 10/28/23 06:38 99 10/28/23 06:38 76 10/28/23 06:38 77 140/81 10/28/23 06:36 83 145/83 H 10/28/23 06:34 78 147/80 H 10/28/23 06:33 83 99 10/28/23 06:32 80 151/88 H 10/28/23 06:30 78 147/84 H 10/28/23 06:28 83 139/75 99 10/28/23 06:26 85 147/85 H 10/28/23 06:24 83 158/91 H 10/28/23 06:23 93 H 100 10/28/23 06:21 77 151/89 H 10/28/23 06:18 83 99 10/28/23 06:13 83 100 10/28/23 06:08 86 99 O2 Del Method 10/28/23 17:07 10/28/23 16:00 Room Air 10/28/23 14:00 10/28/23 13:45 10/28/23 13:31 10/28/23 13:15 10/28/23 13:00 10/28/23 12:45 10/28/23 12:30 10/28/23 12:15 10/28/23 12:00 Room Air 10/28/23 12:00 10/28/23 11:53 10/28/23 11:48 10/28/23 11:46 10/28/23 11:43 10/28/23 11:38 10/28/23 11:33 10/28/23 11:32 10/28/23 11:28 10/28/23 11:23 10/28/23 11:18 10/28/23 11:16 10/28/23 11:13 10/28/23 11:08 10/28/23 11:03 10/28/23 11:00 10/28/23 10:58 10/28/23 10:53 10/28/23 10:48 10/28/23 10:46 10/28/23 10:43 10/28/23 10:38 10/28/23 10:33 10/28/23 10:30 10/28/23 10:28 10/28/23 10:23 10/28/23 10:18 10/28/23 10:15 10/28/23 10:13 10/28/23 10:08 10/28/23 10:03 10/28/23 10:01 10/28/23 09:58 10/28/23 09:53 10/28/23 09:48 10/28/23 09:45 10/28/23 09:43 10/28/23 09:38 10/28/23 09:33 10/28/23 09:31 10/28/23 09:28 10/28/23 09:23 10/28/23 09:18 10/28/23 09:15 10/28/23 09:13 10/28/23 09:08 10/28/23 09:03 10/28/23 09:00 10/28/23 08:58 10/28/23 08:56 10/28/23 08:53 10/28/23 08:52 10/28/23 08:48 10/28/23 08:48 10/28/23 08:48 10/28/23 08:43 10/28/23 08:43 10/28/23 08:43 10/28/23 08:38 10/28/23 08:35 10/28/23 08:33 10/28/23 08:31 10/28/23 08:30 10/28/23 08:30 10/28/23 08:29 10/28/23 08:28 10/28/23 08:28 10/28/23 08:28 10/28/23 08:25 10/28/23 08:23 10/28/23 08:21 10/28/23 08:19 10/28/23 08:18 10/28/23 08:17 10/28/23 08:15 10/28/23 08:13 10/28/23 08:11 10/28/23 08:09 10/28/23 08:08 10/28/23 08:03 10/28/23 07:58 10/28/23 07:53 10/28/23 07:49 10/28/23 07:48 10/28/23 07:43 10/28/23 07:38 10/28/23 07:34 10/28/23 07:33 10/28/23 07:28 10/28/23 07:23 10/28/23 07:20 10/28/23 07:18 10/28/23 07:13 10/28/23 07:08 10/28/23 07:05 10/28/23 07:03 10/28/23 06:58 10/28/23 06:53 10/28/23 06:48 10/28/23 06:46 10/28/23 06:44 10/28/23 06:43 10/28/23 06:42 10/28/23 06:40 10/28/23 06:38 10/28/23 06:38 10/28/23 06:38 10/28/23 06:36 10/28/23 06:34 10/28/23 06:33 10/28/23 06:32 10/28/23 06:30 10/28/23 06:28 10/28/23 06:26 10/28/23 06:24 10/28/23 06:23 10/28/23 06:21 10/28/23 06:18 10/28/23 06:13 10/28/23 06:08 PG Care Time/CCT Total # of Minutes Spent Total Time Spent with Patient: Total time spent is greater than 50% in coordination of care (as documented) at patient's floor/unit and/or counseling patient: Coding Level of Care Code None
[2023-10-28] MEDS: DOCUSATE SODIUM 100 MG CAP PO SCH (23:51)
--- NOTE | 2023-10-29 05:30 | Obstetrical Progress Note ---
Date of Service <Michael Terrazas - Last Filed: 10/29/23 06:12> October 29, 2023 Assessment & Plan <Michael Terrazas - Last Filed: 10/29/23 06:12> (1) Encounter for assessment: Patient is PPD 1 s/p and doing well - Eating well, voiding well, ambulating well - vitals reviewed and within normal limits - pain well controlled with analgesics - OOB, ambulation, diet progression as tolerated - Blood type: O positive, GBS pos, rubella immune - Plan to discharge today - After discharge, 6 week follow up with OB visit type: exam and care immediately after delivery Qualified Code(s): Z39.0 - Encounter for care and examination of mother immediately after delivery (2) History of gestational hypertension: - Patient with hx of gHTN, has been well controlled - 10/27 afternoon BP highest since admission at 166/85 and 157/96 - Currently post with BP: 135/85 and stable Present on Admission?: Yes (3) hemorrhage: - Patient with hisotry of PPH x 3 - During passed 229 cc clot - no further bleeding, vitals remain stable - continue to monitor hemorrhage type: unspecified Qualified Code(s): O72.1 - Other immediate hemorrhage Present on Admission?: No <Laurie Clancy, DO - Last Filed: 10/29/23 07:04> (1) Encounter for assessment: (2) History of gestational hypertension: (3) hemorrhage: Subjective <Michael DO Mk - Last Filed: 10/29/23 06:12> 38 yo post- day 1 s/p with pmhx of gHTN, PPHx3. Delivery complicated by 229 cc clot, however vitals stable and no further issues at this time. Ambulation: ambulating normally Voiding: no voiding problems Passing Gas:: Yes Diet Tolerance:: regular diet Lochia:: Small Feeding Type:: bottle feeding and breast feeding appropriately Current Pain Level:0/10 Resting comfortably this AM in NAD. Denies JUAN, CP, SOB, N/V/D, LE pain/swelling. Physical Exam <Michael Terrazas DO - Last Filed: 10/29/23 06:12> General: patient resting comfortably, NAD, non-toxic in appearance, answers questions appropriately. Skin: warm, dry, intact HEENT: NC/AT, anicteric sclera, conjunctiva without injection, moist mucus membranes. Heart: +S1/S2, regular rate and rhythm, no murmur Lungs: equal air entry bilaterally, no rales/rhonchi/wheezes Abd: +BS, soft, NT/ND, uterine fundus firm at umbilicus, caesarean incision C/D/I. Ext: warm, no clubbing/cyanosis or edema, Rylie's neg. Neuro: nonfocal, speech intact, no facial droop, moving all extremities. <Laurie Clancy, DO - Last Filed: 10/29/23 07:04> General: patient resting comfortably, NAD, non-toxic in appearance, answers questions appropriately. Skin: warm, dry, intact HEENT: NC/AT, anicteric sclera, conjunctiva without injection, moist mucus membranes. Heart: +S1/S2, regular rate and rhythm, no murmur Lungs: equal air entry bilaterally, no rales/rhonchi/wheezes Abd: +BS, soft, NT/ND, uterine fundus firm at umbilicus Ext: warm, no clubbing/cyanosis or edema, Rylie's neg. Neuro: nonfocal, speech intact, no facial droop, moving all extremities. Results & Data <Michael Terrazas, DO - Last Filed: 10/29/23 06:12> Vital Signs (Past 12 Hours) Vital Signs Temp Pulse Resp BP Pulse Ox O2 Del Method 10/29/23 03:00 36.5 C 72 16 135/85 97 Room Air 10/28/23 23:00 36.5 C 76 16 134/73 100 Room Air 10/28/23 19:30 36.5 C 75 16 137/88 97 Room Air Supervising Physician <Laurie Clancy, DO - Last Filed: 10/29/23 07:04> Co-Signing Physician Notes Resident Physician Supervision Note: I interviewed and examined the patient. Discussed with Dr. Terrazas and agree with findings and plan as documented in the note. Any exceptions or clarifications are listed here: PPD#1 doing well, anticipate DC home today. Reviewed Dc instructions - followup 1w in office for BP check. Documented By: Laurie Clancy DO Resident Activity Tracking <Michael Terrazas DO - Last Filed: 10/29/23 06:12> Resident Involvement: Resident Care Provided Care Provided: OB Delivery
[2023-10-29 06:30] LABS: Hematocrit (blood only) 28.7 % (37.0-47.0); Hemoglobin 8.4 g/dl (12.0-16.0)
[2023-10-29] MEDS: PRENATAL VITAMIN 1 TAB PO SCH (08:11)
[2023-10-29] MEDS: CETIRIZINE HCL 10 MG TABLET PO SCH (09:18)
[2023-10-29] MEDS: MONTELUKAST SODIUM 10 MG TABLET PO SCH (09:20)
[2023-10-29] MEDS ORDERED: bisacodyL 5 MG TABEC PO SCH (20:00)
== END 2023-10-29 14:10 | disposition home or self-care (01) | DRG 807 ==
LOC: OPB 16:09 → 4S1 16:12 → 4E2 10-28 15:25